=== PATIENT | female | born 1995 ===

== ENCOUNTER 2018-06-06 08:34 | Day surgery (SDC) | payer MEDICAID ==
[2018-05-31 14:40] VITALS: BMI 27.8
--- NOTE | 2018-06-06 10:01 | CP.SDSHP ---
Same Day Surgery H & P - History Proposed Procedure: US guided aspiration of left neck mass. Pre-Op Diagnosis: left neck mass. - Allergies Allergies: Allergies No Known Allergies Allergy (Verified 05/31/18 14:40) - Physical Exam Mental Status: Alert & Oriented x3 - Impression Impression: Pt with a 6 cm complex left neck mass that appears cystic. Plan US guided aspiration. Pt. Evaluated Today:Candidate for Anesthesia & Procedure: No - Date & Time Date: 06/06/18 Time: 09:30 Short Stay Discharge - Short Stay Discharge Admitting Diagnosis/Reason for Visit: DX: NECK MASS Disposition: HOME/ ROUTINE
--- NOTE | 2018-06-06 10:03 | PCM.SURG1 ---
Surgeon's Initial Post Op Note - Surgeon's Notes Surgeon: Augie Rodas MD Airplane Pilot: NONE Type of Anesthesia: Local Pre-Operative Diagnosis: Left neck mass Operative Findings: US showed a complex left neck mass Post-Operative Diagnosis: Left neck mass Operation Performed: US guided FNA and US guided aspration with a 5 fr catheter. Specimen/Specimens Removed: 30 cc of whitish viscous fluid Estimated Blood Loss: EBL {In ML}: 0 Drains Used: No Drains Post-Op Condition: Good Date of Surgery/Procedure: 06/06/18 Time of Surgery/Procedure: 10:00
--- NOTE | 2018-06-06 10:19 | US ---
PROCEDURE: Date of procedure: 06/06/2018 Procedure: 1. Ultrasound-guided biopsy of left neck mass 2. Ultrasound-guided aspiration of left neck fluid collection. HISTORY: Enlarged left neck mass. TECHNIQUE: Following informed consent and procedure time-out, limited ultrasound patient's LEFT neck demonstrates a large mass submandibular region. The mass is hypoechoic and measures 6 centimeter. After the patient neck was prepped and draped in the usual sterile fashion and the skin anesthetized with lidocaine, ultrasound FNA was performed. A 25 gauge core needle was advanced under ultrasound guidance into the mass. Upon confirmation of needle position, 4x 25gauge specimens were obtained and sent for routine histology and flow cytometry. This was followed by placement of a drainage catheter within the mass. 30 cubic centimeters of viscous whitish fluid was aspirated. Fluid was sent for culture, lymphatic drainage evaluation along with routine histology. A post biopsy ultrasound showed no hematoma IMPRESSION: Ultrasound-guided FNA followed by ultrasound-guided aspiration of left neck mass.
== END 2018-06-06 10:30 | disposition home or self-care (01) ==
LOC: C.SPRAD 08:34
PROVIDERS: ATTEND Radiology Vascular & Interventional Radiology
DX: R22.1 Localized swelling, mass and lump, neck (principal)